=== PATIENT | female | born 1970 | race Caucasian/White ===

== ENCOUNTER 2016-11-29 19:58 | Emergency (ER) | payer OTHER ==
[~2016-11-29] VITALS: Ht 170.2 cm; Wt 122.7 kg
[2016-11-29 20:58] LABS: HEMATOCRIT 42.3 % (36.0-46.0); MCH 30.3 PG (29.0-34.0); MCHC 33.6 G/DL (30.0-36.0); MCV 90.4 FL (83-99); MEAN PLAT.VOLUME 9.7 uM^3 (9.5-12.4); PLATELET COUNT 335 K/uL (156-360); RBC DIS.WIDTH-CV 12.8 % (11.8-14.6); RBC DIS.WIDTH-SD 41.9 % (39-53); RED BLOOD COUNT 4.68 M/uL (3.80-5.20); WHITE BLOOD COUNT 13.6 K/uL (4.1-10.2)
[2016-11-29 21:09] LABS: CHLORIDE 107 mEq/L (99-109); POTASSIUM 3.8 mEq/L (3.7-5.4); SODIUM 139 mEq/L (136-147)
[2016-11-29 21:11] LABS: GLUCOSE 101 mg/dL (70-99)
[2016-11-29 21:12] LABS: ANION GAP 10 MEQ/L (2-14)
[2016-11-29 21:14] LABS: GFR ESTIMATE (CALCULATED) > 59 mL/min/
[2016-11-29 21:15] LABS: UREA NITROGEN (BUN) 16 mg/dL (9-23)
[2016-11-29 21:23] LABS: TROP-I INTERPRETATION NEGATIVE; TROPONIN-I < 0.01 ng/mL (0.0-0.30)
[2016-11-29 23:18] LABS: TOTAL BILIRUBIN 0.4 mg/dL (0.0-1.0)
[2016-11-29 23:19] LABS: ALKALINE PHOSPHATASE 48 IU/L (3-129); D-DIMER ELISA 0.26 mg/L FEU (< 0.57)
[2016-11-29 23:21] LABS: DIRECT BILIRUBIN 0.1 mg/dL (0.0-0.3)
[2016-11-29 23:23] LABS: LIPASE 29 U/L (1.0-51.0)
[2016-11-30] MEDS ORDERED: MOTRIN600 MG PO (00:34)
[2016-11-30] MEDS ORDERED: ZITHROMAX Z-PA250 MG PO (00:34)
[2016-11-30 00:47] VITALS: BP 138/89
[2016-11-30 02:09] LABS: ADD MIUA? YES; BILIRUBIN NEGATIVE; BLOOD SMALL; COLOR YELLOW ((YELLOW)); GLUCOSE (STRIP) NEGATIVE; KETONES NEGATIVE; LEUKOCYTES NEGATIVE; NITRITE NEGATIVE; PROTEIN (STRIP) NEGATIVE; SPECIFIC GRAVITY 1.023 (1.000-1.030); UROBILINOGEN 0.2 MG/DL (0.2-1.0)
[2016-11-30 02:14] LABS: BACTERIA RARE /HPF; EPITHELIAL CELLS 1+ /HPF; MUCUS NONE SEEN /LPF; RED BLOOD CELLS 0-5 /HPF (0-5); UCUL ADDED? NO; WHITE BLOOD CELLS 0-5 /HPF (0-5)
== END 2016-11-30 00:54 | disposition home or self-care (01) ==
LOC: EME 19:58 → RME 19:58
PROVIDERS: Physician Assistant
DX: R09.1 Pleurisy (principal); I10 Essential (primary) hypertension; T50.2X6A Underdosing of carbonic-anhydrase inhibitors, benzothiadiazides and other diuretics, initial encounter; Z91.128 Patient's intentional underdosing of medication regimen for other reason; E11.9 Type 2 diabetes mellitus without complications; F17.200 Nicotine dependence, unspecified, uncomplicated
CPT/HCPCS: 71020; 80048; 80076; 81003; 83690; 84484; 85027; 85379; 93005; 99281; 99285